=== PATIENT | male | born 1980 | race African-American/Black ===

== ENCOUNTER 2023-02-14 00:51 | Emergency (ER) | payer MEDICAID ==
[~2023-02-14] VITALS: Ht 175.3 cm; Wt 64.0 kg
[2023-02-14 01:27] VITALS: BP 106/74; PULSE 104; RESP 18; TEMP 98.9; O2SAT 99
[2023-02-14 02:58] LABS: HEMATOCRIT. 40.2 % (42.0-52.0); HEMOGLOBIN. 13.5 g/dL (14.0-18.0); MEAN CORPUSCULAR HEMOGLOBIN 28.9 pg (28.0-32.0); MEAN CORPUSCULAR HGB CONC 33.5 g/dL (31.0-37.0); MEAN CORPUSCULAR VOLUME 86.1 fL (80.0-94.0); PLATELET 243 x1000/uL (130-400); RED BLOOD CELL COUNT 4.67 mill/uL (4.7-6.1); RED CELL DISTRIBUTION WIDTH 14.8 % (11.6-14.6); WHITE BLOOD COUNT 3.4 x1000/uL (4.5-11.0)
[2023-02-14 03:01] LABS: DIFFERENTIAL COMMENT 1
[2023-02-14 03:08] LABS: ALANINE AMINOTRANSFERASE 16 IU/L (10-49); ALBUMIN 4.3 g/dL (3.2-4.8); ASPARTATE AMINOTRANSFERASE 32 IU/L (<34); BILIRUBIN TOTAL 0.5 mg/dL (0.1-1.0); CALCIUM 9.1 mg/dL (8.7-10.4); CARBON DIOXIDE 26 mEq/L (21-32); CHLORIDE 95 mEq/L (98-107); CREATININE 1.2 mg/dL (0.6-1.3); GLUCOSE 104 mg/dL (70-105); PROTEIN TOTAL 8.1 g/dL (6.0-8.3); SODIUM 129 mEq/L (136-145); UREA NITROGEN BLOOD 11 mg/dL (9-23)
[2023-02-14 03:30] LABS: PLATELET ESTIMATE NORMAL
[2023-02-14] MEDS ORDERED: ACETAMINOPHEN 325MG TABLET PO ONE (06:00)
[2023-02-14] MEDS ORDERED: ONDA4TAB50 PO (06:45)
[2023-02-14] MEDS ORDERED: TOPUD PO (06:45)
== END 2023-02-14 06:55 | disposition home or self-care (01) ==
LOC: ER 00:51
DX: R10.30 Lower abdominal pain, unspecified (principal)
CPT/HCPCS: 36415; 74176; 80053; 85025; 99284